=== PATIENT | male | born 1960 | race Caucasian/White ===

== ENCOUNTER 2017-06-12 19:49 | Emergency (ER) | payer BC ==
[~2017-06-12] VITALS: Ht 182.9 cm; Wt 93.0 kg
[2017-06-12] MEDS ORDERED: LISINOPRIL10 MG PO (19:56)
[2017-06-12] MEDS ORDERED: VITAMIN D33000 UNIT PO (19:57)
[2017-06-12] MEDS ORDERED: TRAMADOL HCL50 MG PO (20:19)
[2017-06-12] MEDS ORDERED: PENICILLIN V P500 MG PO (20:19)
== END 2017-06-12 20:26 | disposition home or self-care (01) ==
LOC: ED 19:49
DX: K02.9 Dental caries, unspecified (principal); I10 Essential (primary) hypertension; Z87.891 Personal history of nicotine dependence; Z79.899 Other long term (current) drug therapy
CPT/HCPCS: 99283